=== PATIENT | male | born 1985 | race Caucasian/White ===

== ENCOUNTER 2016-11-08 05:12 | Emergency (ER) | payer OTHER ==
[~2016-11-08] VITALS: Ht 172.7 cm; Wt 59.1 kg
[~2016-11-08 05:12] MED LIST: FLOMAX0.4 MG PO; PERCOCET 5/31 TABLET PO; ZOFRAN ODT4 MG PO; ZOFRAN4 MG PO
[2016-11-08 06:21] VITALS: BP 123/85
== END 2016-11-08 06:22 | disposition home or self-care (01) ==
LOC: EME 05:12
DX: M25.561 Pain in right knee (principal); Z90.5 Acquired absence of kidney
CPT/HCPCS: 73564; 99281; 99283; J3010

== ENCOUNTER 2017-10-17 11:45 | Inpatient (IN) | payer SELFPAY ==
[~2017-10-17] VITALS: Ht 172.7 cm; Wt 54.7 kg
[2017-10-17 12:32] LABS: BASOPHIL (%) 0.3 % (0-1); BASOPHIL COUNT 0.1 K/uL (0-0.1); EOSINOPHIL (%) 0.2 % (0-5); HEMOGLOBIN 13.5 G/DL (12.5-16.6); IMMATURE GRANULOCYTE (%) 0.6 % (0.0-0.7); LYMPHOCYTE (%) 16.3 % (15-42); LYMPHOCYTE COUNT 3.6 K/uL (1.0-2.8); MCH 30.8 PG (29.0-34.0); MCHC 34.6 G/DL (30.0-36.0); MONOCYTE COUNT 2.4 K/uL (0-0.8); NEUTROPHIL (%) 71.6 % (45-76); NEUTROPHIL COUNT 15.7 K/uL (1.8-6.4); PLATELET COUNT 324 K/uL (156-360); RBC DIS.WIDTH-CV 14.2 % (11.8-14.6); RED BLOOD COUNT 4.38 M/uL (4.00-5.50)
[2017-10-17 12:39] LABS: ALBUMIN 4.1 g/dL (3.2-4.8)
[2017-10-17 12:40] LABS: CHLORIDE 100 mEq/L (99-109); POTASSIUM 4.4 mEq/L (3.7-5.4); SODIUM 135 mEq/L (136-147)
[2017-10-17 12:42] LABS: GLUCOSE 116 mg/dL (70-99); TOTAL PROTEIN 8.8 g/dL (6.4-8.3)
[2017-10-17 12:44] LABS: TOTAL BILIRUBIN 1.1 mg/dL (0.0-1.0)
[2017-10-17 12:46] LABS: ALKALINE PHOSPHATASE 156 IU/L (3-129); CREATININE 0.9 mg/dL (0.6-1.3); GFR ESTIMATE (CALCULATED) > 59 mL/min/ (58.99-99999)
[2017-10-17 12:47] LABS: AST (GOT) 26 IU/L (2-34); UREA NITROGEN (BUN) 7 mg/dL (9-23)
[2017-10-17 12:48] LABS: ALT (GPT) 66 IU/L (3-49)
[2017-10-17] MEDS ORDERED: TYLENOL REGULA325 MG PO (14:13)
[2017-10-17 15:05] VITALS: BP 111/72
[2017-10-17 23:57] VITALS: BP 116/68
[2017-10-18 07:15] VITALS: BP 118/79
[2017-10-18 11:00] VITALS: BP 118/80
[2017-10-18] MEDS ORDERED: CLEOCIN300 MG PO (12:54)
[2017-10-18 12:55] LABS: HEMATOCRIT 35.4 % (38.0-50.0); MCH 29.6 PG (29.0-34.0); MCHC 32.5 G/DL (30.0-36.0); MCV 91.2 FL (86-99); PLATELET COUNT 289 K/uL (156-360); RBC DIS.WIDTH-CV 14.4 % (11.8-14.6); RBC DIS.WIDTH-SD 48.2 % (39-53); RED BLOOD COUNT 3.88 M/uL (4.00-5.50); WHITE BLOOD COUNT 13.9 K/uL (4.1-10.2)
[2017-10-18 13:03] LABS: HEMOGLOBIN 11.5 G/DL (12.5-16.6)
[2017-10-18 13:10] LABS: CHLORIDE 106 MEQ/L (99-109); CREATININE 0.8 MG/DL (0.6-1.3); GFR ESTIMATE (CALCULATED) > 59 mL/min/ (58.99-99999); GLUCOSE 148 mg/dL (70-99); POTASSIUM 4.3 MEQ/L (3.7-5.4); SODIUM 138 MEQ/L (136-147); UREA NITROGEN (BUN) 8 mg/dL (9-23)
== END 2017-10-18 15:10 | disposition home or self-care (01) | DRG 603 ==
LOC: EME 11:45 → 5EAST 13:49 → EDOF 13:49 → ENRESERV 13:51 → 5EAST 15:02
PROVIDERS: Emergency Medicine; Physician Assistant
DX: L03.211 Cellulitis of face (principal); C78.00 Secondary malignant neoplasm of unspecified lung; L03.213 Periorbital cellulitis; B95.62 Methicillin resistant Staphylococcus aureus infection as the cause of diseases classified elsewhere; E86.0 Dehydration; B86 Scabies; F14.10 Cocaine abuse, uncomplicated; Z85.528 Personal history of other malignant neoplasm of kidney; Z90.5 Acquired absence of kidney; Z94.81 Bone marrow transplant status; Z92.21 Personal history of antineoplastic chemotherapy; Z92.3 Personal history of irradiation
CPT/HCPCS: 70487; 80048; 80053; 83605; 85025; 85027; 87040; 87077; 87147; 87186; 87801; 99281; 99285; J0295; J1650; J1885; J3370; J7030; J7050